=== PATIENT | male | born 1995 | race Caucasian/White ===

== ENCOUNTER 2016-05-24 03:46 | Emergency (ER) | payer OTHER ==
[~2016-05-24] VITALS: Ht 177.8 cm; Wt 81.6 kg
[~2016-05-24 03:46] MED LIST: ANTIBIOTIC O500 U/GM TP; AUGMENTIN 875875 MG PO; CYCLOBENZAPRINE10 MG PO; DOXYCYCLINE100 M3 PO; LEXAPRO10 MG PO; NAPROSYN500 MG PO; ULTRAM50 MG PO; ZOFRAN ODT4 MG SL
[2016-05-24 04:13] LABS: HEMATOCRIT 38.4 % (42.0-52.0); HEMOGLOBIN 13.7 g/dl (14.0-18.0); MEAN CELL VOLUME 86.3 fl (80.0-94.0); MEAN CORPUSCULAR HGB 30.8 pg (27.0-31.0); MEAN CORPUSCULAR HGB CONC 35.7 g/dl (33.0-37.0); MEAN PLATELET VOLUME 8.4 fl (9.6-12.3); PLATELET COUNT AUTOMATED 423 10*3/uL (130-400); RED BLOOD COUNT 4.45 10*6/uL (4.50-5.90); RED CELL DISTRI WIDTH 12.4 % (0-14.5); WHITE BLOOD COUNT 20.6 10*3/uL (4.8-10.8)
[2016-05-24 04:29] LABS: ALBUMIN 4.3 gm/dl (3.1-4.5); ALKALINE PHOSPHATASE 73 U/L (45-117); BILIRUBIN, TOTAL 0.3 mg/dl (0.2-1.0); BUN 10 mg/dl (7-24); CARBON DIOXIDE 25 mmol/L (21-32); CHLORIDE 104 mmol/L (98-107); CKMB 0.8 ng/ml (0.5-3.6); CPK 129 U/L (39-308); EST GLOM FILT AFRICAN AMERICAN > 60 ml/min; GLUCOSE 173 mg/dL (65-99); POTASSIUM 3.6 mmol/L (3.5-5.1); SGOT/AST 22 IU/L (3-35); SGPT/ALT 23 U/L (12-78); SODIUM 141 mmol/L (136-145); TOTAL PROTEIN 7.6 gm/dL (6.4-8.2)
[2016-05-24 04:31] LABS: EOSINOPHIL # 0.8 10*3/uL (0-0.4); EOSINOPHILS 4 % (1-4); LYMPHOCYTE # 5.2 10*3/uL (1.3-4.4); NEUTROPHIL # 13.6 10*3/uL (2.3-7.9); NEUTROPHILS 66 % (47-73); PLATELET SUFFICIENCY NORMAL (NORMAL); TOTAL CELLS COUNTED 100 #CELLS
[2016-05-24 04:32] LABS: TROPONIN I < 0.015 ng/ml (<0.045)
[2016-05-24] MEDS ORDERED: MEDROL DOSEPAK4 MG PO (05:15)
[2016-05-24] MEDS ORDERED: ZYRTEC10 M3 PO (05:15)
== END 2016-05-24 05:57 | disposition home or self-care (01) ==
LOC: ED 03:46
PROVIDERS: Emergency Medicine
DX: T78.40XA Allergy, unspecified, initial encounter (principal); F19.10 Other psychoactive substance abuse, uncomplicated; F17.200 Nicotine dependence, unspecified, uncomplicated; F12.10 Cannabis abuse, uncomplicated; F41.9 Anxiety disorder, unspecified

== ENCOUNTER 2016-08-10 14:17 | Emergency (ER) | payer OTHER ==
[~2016-08-10] VITALS: Ht 177.8 cm; Wt 79.4 kg
[~2016-08-10 14:17] MED LIST changes: +MEDROL DOSEPAK4 MG PO; +ZYRTEC10 M3 PO
== END 2016-08-10 14:55 | disposition home or self-care (01) ==
LOC: ED 14:17
DX: Z20.2 Contact with and (suspected) exposure to infections with a predominantly sexual mode of transmission (principal); F17.200 Nicotine dependence, unspecified, uncomplicated

== ENCOUNTER 2016-11-05 23:38 | Emergency (ER) | payer OTHER ==
[~2016-11-05] VITALS: Ht 177.8 cm; Wt 83.9 kg
--- NOTE | ~2016-11-05 | EKG ---
[place], [place] ELECTROCARDIOGRAM REPORT NAME: ANNE MACIAS UNIT #: [id number] ROOM: DOCTOR: PADMINI DONG BIRTHDATE: [birth year] DOS: 11/05/2016 TIME: 2355 hours. Normal sinus rhythm at 92 beats per minute. Early repolarization changes present. The tracing is normal. No previous tracing is available for comparison. Padmini Dong NP CM:EKGRPT:ELECTROCARDIOGRAM REPORT [id number] PADMINI DONG
[2016-11-05 23:55] LABS: BASO # 0.1 10*3/uL (0.0-0.1); BASO % 0.6 % (0.0-1.0); EOS # 0.1 10*3/uL (0.0-0.4); EOS % 0.6 % (1.0-4.0); HEMATOCRIT 41.4 % (42.0-52.0); HEMOGLOBIN 14.4 g/dl (14.0-18.0); LYMPH # 2.8 10*3/uL (1.3-4.4); LYMPH % 19.3 % (27.0-41.0); MEAN CELL VOLUME 88.1 fl (80.0-94.0); MEAN CORPUSCULAR HGB 30.6 pg (27.0-31.0); MEAN CORPUSCULAR HGB CONC 34.8 g/dl (33.0-37.0); MEAN PLATELET VOLUME 8.7 fl (9.6-12.3); MONO # 0.7 10*3/uL (0.1-1.0); NEUT # 10.7 10*3/uL (2.3-7.9); NEUT % 74.2 % (47.0-73.0); PLATELET COUNT AUTOMATED 339 10*3/uL (130-400); RED CELL DISTRI WIDTH 12.6 % (0-14.5); WHITE BLOOD COUNT 14.4 10*3/uL (4.8-10.8)
[2016-11-06 00:14] LABS: ALBUMIN 4.2 gm/dl (3.1-4.5); ALKALINE PHOSPHATASE 76 U/L (45-117); BUN 13 mg/dl (7-24); CHLORIDE 103 mmol/L (98-107); CREATININE 1.27 mg/dL (0.70-1.30); POTASSIUM 3.6 mmol/L (3.5-5.1); SGOT/AST 18 IU/L (3-35); SGPT/ALT 18 U/L (12-78); SODIUM 139 mmol/L (136-145); TOTAL PROTEIN 7.6 gm/dL (6.4-8.2)
[2016-11-06 00:21] LABS: ETHYL ALCOHOL < 3.0 mg/dl (<3); TROPONIN I < 0.015 ng/ml (<0.045)
[2016-11-06 00:22] LABS: ACETAMINOPHEN (TYLENOL) < 2.0 ug/ml (10-30)
[2016-11-06 00:45] LABS: BILIRUBIN NEGATIVE (NEGATIVE); BLOOD NEGATIVE (NEGATIVE); CLARITY CLEAR (CLEAR); COLOR YELLOW (YELLOW); GLUCOSE NEGATIVE (NEGATIVE); KETONE NEGATIVE (NEGATIVE); LEUKO ESTERASE NEGATIVE (NEGATIVE); NITRITE NEGATIVE (NEGATIVE); SPECIFIC GRAVITY >= 1.030 (1.005-1.030); UROBILINOGEN 0.2 E.U./dl (0.2-1.0)
[2016-11-06 00:51] LABS: MUCOUS TRACE; WBC 0-2 wbc/hpf (0-5)
[2016-11-06 00:56] LABS: URINE AMPHETAMINES < 1000 (1000ng/ml); URINE BARBITURATES < 200 (200ng/ml); URINE BENZODIAZEPINES > 200 (200ng/ml); URINE CANNABINOIDS (THC) < 50 (50ng/ml); URINE COCAINE < 300 (300ng/ml); URINE METHADONE < 300 (300ng/ml); URINE OPIATES < 300 (300ng/ml); URINE PHENCYCLIDINE < 25 (25ng/ml)
== END 2016-11-06 02:40 | disposition home or self-care (01) ==
LOC: ED 23:38
PROVIDERS: Emergency Medicine Emergency Medical Services
DX: T50.991A Poisoning by other drugs, medicaments and biological substances, accidental (unintentional), initial encounter (principal); F41.9 Anxiety disorder, unspecified; F12.10 Cannabis abuse, uncomplicated; F17.200 Nicotine dependence, unspecified, uncomplicated; Y92.9 Unspecified place or not applicable

== ENCOUNTER 2016-11-11 08:46 | Inpatient (IN) | payer OTHER ==
[~2016-11-11] VITALS: Ht 177.8 cm; Wt 81.4 kg
[2016-11-11 09:50] VITALS: BP 116/81
--- NOTE | 2016-11-11 10:00 | NUR ---
21 year old MALE admitted to room # 415-2 for stabilization. 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 Compliant with admission procedure. Patient denies any anxiety, but is unable to sit still, taps toes to floor continuously, looks about room, unable to focus eyes on nurse during interview. See assessment forms for additional information about patient status.
[2016-11-11 10:28] LABS: BASO # 0.1 10*3/uL (0.0-0.1); BASO % 0.6 % (0.0-1.0); EOS # 0.6 10*3/uL (0.0-0.4); EOS % 5.1 % (1.0-4.0); HEMATOCRIT 42.4 % (42.0-52.0); LYMPH # 1.5 10*3/uL (1.3-4.4); LYMPH % 14.1 % (27.0-41.0); MEAN CELL VOLUME 86.9 fl (80.0-94.0); MEAN CORPUSCULAR HGB 30.7 pg (27.0-31.0); MEAN CORPUSCULAR HGB CONC 35.4 g/dl (33.0-37.0); MEAN PLATELET VOLUME 8.2 fl (9.6-12.3); MONO # 0.7 10*3/uL (0.1-1.0); MONO % 6.8 % (3.0-9.0); PLATELET COUNT AUTOMATED 343 10*3/uL (130-400); RED BLOOD COUNT 4.88 10*6/uL (4.50-5.90); RED CELL DISTRI WIDTH 12.4 % (0-14.5); WHITE BLOOD COUNT 10.9 10*3/uL (4.8-10.8)
[2016-11-11 10:47] LABS: ALBUMIN 3.9 gm/dl (3.1-4.5); ALKALINE PHOSPHATASE 77 U/L (45-117); BUN 9 mg/dl (7-24); CHLORIDE 102 mmol/L (98-107); CREATININE 0.99 mg/dL (0.70-1.30); POTASSIUM 4.1 mmol/L (3.5-5.1); SGOT/AST 18 IU/L (3-35); SGPT/ALT 20 U/L (12-78); SODIUM 136 mmol/L (136-145); TOTAL PROTEIN 8.2 gm/dL (6.4-8.2)
[2016-11-11 10:50] LABS: ETHYL ALCOHOL < 3.0 mg/dl (<3)
--- NOTE | 2016-11-11 11:17 | NUR ---
ROBAXIN GIVEN FOR MUSCLE CRAMPS, BENTYL GIVEN FOR ABD CRAMPS AND VISTARIL GIVEN FOR ANXIETY. WILL CONT TO MONITOR. CALL LIGHT IN REACH.
[2016-11-11 11:26] LABS: BILIRUBIN NEGATIVE (NEGATIVE); BLOOD NEGATIVE (NEGATIVE); CLARITY SL CLOUDY (CLEAR); COLOR YELLOW (YELLOW); GLUCOSE NEGATIVE (NEGATIVE); KETONE NEGATIVE (NEGATIVE); LEUKO ESTERASE NEGATIVE (NEGATIVE); NITRITE NEGATIVE (NEGATIVE); SPECIFIC GRAVITY 1.015 (1.005-1.030)
[2016-11-11 11:32] LABS: BACTERIA TRACE; MUCOUS 1+
[2016-11-11 11:34] LABS: URINE AMPHETAMINES < 1000 (1000ng/ml); URINE BARBITURATES < 200 (200ng/ml); URINE BENZODIAZEPINES > 200 (200ng/ml); URINE CANNABINOIDS (THC) < 50 (50ng/ml); URINE COCAINE < 300 (300ng/ml); URINE METHADONE < 300 (300ng/ml); URINE OPIATES > 300 (300ng/ml)
[2016-11-11 11:41] LABS: URINE PHENCYCLIDINE < 25 (25ng/ml)
[2016-11-11 12:00] VITALS: BP 129/86
--- NOTE | 2016-11-11 12:17 | NUR ---
ANANDAXIN, VISTARIL AND BENTYL EFF AT THIS TIME. WILL CONT TO MONITOR. CALL LIGHT IN REACH.
[2016-11-11 16:00] VITALS: BP 126/79
[2016-11-12] VITALS: BP 140/84
--- NOTE | 2016-11-12 01:17 | NUR ---
24 HR chart check completed.
--- NOTE | 2016-11-12 02:29 | NUR ---
PATIENT REQUESTED MEDICATION TO SLEEP AT 0200, STATED THAT HE COULD NOT GO TO SLEEP, GIVEN PER ORDER. VERY PLEASANT AND TALKATIVE.
--- NOTE | 2016-11-12 02:45 | NUR ---
PATIENT SLEEPING IN BED, NO PROBLEMS NOTED.
[2016-11-12 08:00] VITALS: BP 108/64
--- NOTE | 2016-11-12 09:25 | NUR ---
PT SLEEPING IN BED, AWAKENS. PT DROWSY. C/O NAUSEA, MEDICATED WITH ZOFRAN. ALSO C/O MUSCLE ACHES, MEDICATED WITH ROUTINE SUBUTEX, SEE EMAR. CALL LIGHT IN REACH.
--- NOTE | 2016-11-12 10:15 | NUR ---
Patient resting. Responding to scheduled medications with fewer complaints of pain and anxiety. CALL LIGHT IN REACH.
[2016-11-12 16:00] VITALS: BP 112/93
--- NOTE | 2016-11-12 17:32 | NUR ---
Patient displaying withdrawal symptoms, including: irritability, anxiousness, restlessness and agitation, muscle aches, sweats. Scheduled/PRN medications provided. Will continue to monitor medication effectiveness. Call light within reach.
--- NOTE | 2016-11-12 18:51 | NUR ---
PT STATES SOME RELIEF OF SYMPTOMS. MEDICATIONS GIVEN EFFECTIVE.
--- NOTE | 2016-11-12 20:00 | NUR ---
ASSUMED CARE OF PATIENT. ASSESSMENT COMPLETE. RESTING IN BED. NO COMPLAINTS AT THIS TIME. PRN MEDICATIONS REVIEWED. CALL LIGHT IN REACH. WILL CONTINUE TO MONITOR.
[2016-11-13] VITALS: BP 108/81
--- NOTE | 2016-11-13 02:29 | NUR ---
PT WAS GIVEN PRN TYLENOL, TRAZODONE, AND DESYRIL. WILL CONTINUE TO MONITOR.
--- NOTE | 2016-11-13 02:30 | NUR ---
SLEEPING. RESP EASY AND NONLABORED ON ROOM AIR. NO DISTRESS NOTED. CALL LIGHT IN REACH. WILL CONTINUE TO MONITOR.
[2016-11-13 08:00] VITALS: BP 110/80
[2016-11-13 12:03] LABS: BASO # 0.1 10*3/uL (0.0-0.1); BASO % 0.4 % (0.0-1.0); EOS # 0.3 10*3/uL (0.0-0.4); EOS % 1.6 % (1.0-4.0); HEMATOCRIT 40.4 % (42.0-52.0); HEMOGLOBIN 14.2 g/dl (14.0-18.0); LYMPH # 1.9 10*3/uL (1.3-4.4); LYMPH % 9.5 % (27.0-41.0); MEAN CELL VOLUME 89.8 fl (80.0-94.0); MEAN CORPUSCULAR HGB 31.6 pg (27.0-31.0); MEAN CORPUSCULAR HGB CONC 35.1 g/dl (33.0-37.0); MEAN PLATELET VOLUME 8.6 fl (9.6-12.3); MONO # 1.3 10*3/uL (0.1-1.0); MONO % 6.7 % (3.0-9.0); NEUT # 16.2 10*3/uL (2.3-7.9); NEUT % 81.4 % (47.0-73.0); PLATELET COUNT AUTOMATED 322 10*3/uL (130-400); RED CELL DISTRI WIDTH 12.3 % (0-14.5); WHITE BLOOD COUNT 19.8 10*3/uL (4.8-10.8)
[2016-11-13 12:13] LABS: BUN 17 mg/dl (7-24); CHLORIDE 100 mmol/L (98-107); CREATININE 1.06 mg/dL (0.70-1.30); SODIUM 135 mmol/L (136-145)
--- NOTE | 2016-11-13 15:45 | NUR ---
D/C PLAN: PATIENT IS GOING TO [facility] FOR HIS AFTERCARE PLAN. PATIENT WAS ALSO PUT ON A WAITING LIST FOR SECOND CHANCES. PATIENT WANTS TO GO TO A METHADONE PROVIDER. PATIENT UNDERSTANDS AND AGREES TO PLAN. HODA HINES B.A. HEAD CHARGER
[2016-11-13 16:00] VITALS: BP 141/89
--- NOTE | 2016-11-13 16:20 | NUR ---
PATIENT MEDICATED WITH VISTARIL UPON COMPLAINTS OF ANXIETY AT THIS TIME. WILL MONITOR.
--- NOTE | 2016-11-13 16:20 | NUR ---
PATIENT MEDICATED WITH VISTARIL FOR AGITATION. WILL MONITOR FOR EFFECTIVENESS.
--- NOTE | 2016-11-13 17:20 | NUR ---
PRN MEDICATION EFFECTIVE AT THIS TIME.
--- NOTE | 2016-11-13 17:56 | NUR ---
PATIENT STATES THAT VISTARIL WAS EFFECTIVE. PT VERY DROWSY AT THIS TIME.
--- NOTE | 2016-11-13 20:00 | NUR ---
PATIENT IS AWAKE, ALERT AND ORIENTED X3. PLEASANT AND COOPERATIVE WITH ASSESSMENT. LUNGS ARE CLEAR AND DIMINISHED THROUGHOUT LUNGFIELDS. ROOM AIR. ABDOMEN IS SOFT AND NON-TENDER UPON PALPTION, BOWEL SOUNDS ARE NROMAOCTIVE X 4 QUADS. PATIENT INSISTED THAT THE IV FROM HIS LEFT AC BE REMOVED. IV REMOVED AT THIS TIME. PATIENT STATES THAT HE CARRILLO SNOT WANT ANY MORE FLUIDS AND IS REFUSING TO HAVE ANY MORE. PATIENT DNEIES ANY NEEDS AT THE PRESENT TIME. CALL LIGHT IS IN REACH.
--- NOTE | 2016-11-13 20:30 | NUR ---
PATIENT REQUESTED SOMETHING FOR C/O ACHY RESTLESS LEGS. PRN REQUIP AND ROBAXIN GIVEN AT THIS TIME. CALL LIGHT IS IN REACH.
--- NOTE | 2016-11-13 21:30 | NUR ---
PATIENT STATES THAT THE REQUIP AND ROBAXIN HAVE HELPED AT THIS TIME. DNEIES ANY FURTHER NEEDS. CALL LIGHT IS IN REACH.
--- NOTE | 2016-11-13 22:47 | NUR ---
PATIENT REQUESTED SOMETHING FOR ANXIETY AND SOMETHING TO HELP HIM SLEEP . PRN VISTRAIL AND TRAZADONE GIVEN AT THIS TIME. CALL LIGHT IS IN REACH.
--- NOTE | 2016-11-13 23:58 | NUR ---
PATIENT INFOMRED THAT HIS VISITOR HAD TO LEAVE AT THIS TIME. PATIENT GOT UPSET AND STATED THAT THEY HAD TRIED TO CALL A CAB AND THE PHONE WASN'T WORKING. THE [employer] COMPANY NUMBER WAS CALLED FOR HIS FIANCE AT THIS TIME. PATIENT ALSO INFORMED THE THRESHING OPERATOR THAT SHE COULD NOT COME IN HIS ROOM BECAUSE HE SLEEPS NAKED. THRESHING OPERATOR INFOMRED PATIENT THAT BOTH HERSELF AND THE NURSE WOULD BE MAKING ROUNDS ON HIM AND OBTAINING VITALS AND GIVING MEICATIONS. PATIENT SHUT THE DOOR ON THIS THRESHING OPERATOR.
[2016-11-14] VITALS: BP 143/94
--- NOTE | 2016-11-14 01:05 | NUR ---
PATIENT REQUESTED SOMETHING FOR INSOMINA. PRN TRAZADONE. GIVEN AT [facility] HIS SECOND DOSE. CALL LIGHT IS IN REACH.
--- NOTE | 2016-11-14 05:55 | NUR ---
PATIENT RESTING IN BED WITH EYES CLOSED BILATERALLY. RESPIRAITONS ARE EASY AND REGULAR. NO S/S OF PAIN OR DISCOMFORT. CALL LIGHT IS IN REACH.
[2016-11-14 07:06] LABS: HEPATITIS B SURFACE AG Negative (Negative); HEPATITIS C VIRUS ANTIBODY <0.1 s/co (0.0-0.9); HIV 1+2 AB + HIV1 P24 AG Non Reactive (Non Reactive)
[2016-11-14 07:18] LABS: BASO # 0.1 10*3/uL (0.0-0.1); BASO % 0.8 % (0.0-1.0); EOS # 0.5 10*3/uL (0.0-0.4); HEMATOCRIT 35.6 % (42.0-52.0); HEMOGLOBIN 12.3 g/dl (14.0-18.0); LYMPH # 2.3 10*3/uL (1.3-4.4); LYMPH % 29.3 % (27.0-41.0); MEAN CELL VOLUME 90.6 fl (80.0-94.0); MEAN CORPUSCULAR HGB 31.3 pg (27.0-31.0); MEAN CORPUSCULAR HGB CONC 34.6 g/dl (33.0-37.0); MEAN PLATELET VOLUME 8.5 fl (9.6-12.3); MONO # 0.8 10*3/uL (0.1-1.0); MONO % 9.4 % (3.0-9.0); NEUT # 4.3 10*3/uL (2.3-7.9); NEUT % 54.2 % (47.0-73.0); PLATELET COUNT AUTOMATED 288 10*3/uL (130-400); RED BLOOD COUNT 3.93 10*6/uL (4.50-5.90); RED CELL DISTRI WIDTH 12.2 % (0-14.5)
--- NOTE | 2016-11-14 11:15 | NUR ---
Discharge instructions reviewed with patient/family. Patient receptive and verbalizes understanding. Follow-up care arranged. Written instructions given to patient/family. PATIENT PICKED UP BY GRANDMOTHER. AMBULATORY OFF FLOOR. LORELEI ALONZO
[2016-11-17 04:04] LABS: GONOCOCCUS BY NAA Negative (Negative)
== END 2016-11-14 11:15 | disposition home or self-care (01) | DRG 897 ==
LOC: 4E 08:46
PROVIDERS: Internal Medicine; ADMIT Internal Medicine
DX: F11.23 Opioid dependence with withdrawal (principal); R65.10 Systemic inflammatory response syndrome (SIRS) of non-infectious origin without acute organ dysfunction; E87.1 Hypo-osmolality and hyponatremia; T50.901A Poisoning by unspecified drugs, medicaments and biological substances, accidental (unintentional), initial encounter; M79.1 Myalgia; F17.200 Nicotine dependence, unspecified, uncomplicated; R73.9 Hyperglycemia, unspecified; F13.239 Sedative, hypnotic or anxiolytic dependence with withdrawal, unspecified; F41.9 Anxiety disorder, unspecified; F10.10 Alcohol abuse, uncomplicated; F14.10 Cocaine abuse, uncomplicated; Z71.6 Tobacco abuse counseling

== ENCOUNTER 2017-01-09 20:20 | Emergency (ER) | payer OTHER ==
[~2017-01-09] VITALS: Ht 177.8 cm; Wt 81.6 kg
[2017-01-09] MEDS ORDERED: KETOROLAC10 MG PO (21:08)
== END 2017-01-09 22:47 | disposition home or self-care (01) ==
LOC: ED 20:20
DX: K08.89 Other specified disorders of teeth and supporting structures (principal); R73.9 Hyperglycemia, unspecified; E87.1 Hypo-osmolality and hyponatremia; F10.10 Alcohol abuse, uncomplicated; F41.9 Anxiety disorder, unspecified; F17.200 Nicotine dependence, unspecified, uncomplicated

== ENCOUNTER 2017-08-12 06:10 | Emergency (ER) | payer OTHER ==
[~2017-08-12] VITALS: Ht 177.8 cm; Wt 83.9 kg
[~2017-08-12 06:10] MED LIST changes: +KETOROLAC10 MG PO
== END 2017-08-12 08:18 | disposition left against medical advice (07) ==
LOC: ED 06:10
DX: R55 Syncope and collapse (principal); F17.200 Nicotine dependence, unspecified, uncomplicated; F12.10 Cannabis abuse, uncomplicated; F14.10 Cocaine abuse, uncomplicated; R42 Dizziness and giddiness

== ENCOUNTER 2017-11-03 12:23 | Emergency (ER) | payer OTHER ==
[~2017-11-03] VITALS: Ht 177.8 cm; Wt 79.4 kg
--- NOTE | ~2017-11-03 | EKG ---
[place], [place] ELECTROCARDIOGRAM REPORT NAME: ANNE MACIAS UNIT #: [id number] ROOM: DOCTOR: EPIPHANY DRAFT REPORT BIRTHDATE: [birth year] [facility] Test Date: 2017-11-03 Test Time: 13:02:06 Pat Name: ANNE MACIAS Department: Room: Gender: Borematic Operator: : 1995 Requested By: PORTER SAMAYOA DNP Order Number: [id number] Reading MD: Mitali Plata MD Measurements Intervals [place] Rate: 100 P: 57 DC: 135 QRS: 57 QRSD: 84 T: 57 QT: 359 QTc: 463 Interpretive Statements Sinus tachycardia Electronically Signed On 11-04-2017 13:41:28 PDT by Mitali Plata MD CM:EKGRPT:ELECTROCARDIOGRAM REPORT [id number] PORTER SAMAYOA DNP EPIPHANY DRAFT REPORT PORTER SAMAYOA DNP
[2017-11-03 13:07] LABS: BASO % 0.3 % (0.0-1.0); EOS # 0.1 10*3/uL (0.0-0.4); EOS % 0.7 % (1.0-4.0); HEMATOCRIT 36.2 % (42.0-52.0); HEMOGLOBIN 12.9 g/dl (14.0-18.0); LYMPH # 2.4 10*3/uL (1.3-4.4); LYMPH % 19.1 % (27.0-41.0); MEAN CELL VOLUME 88.1 fl (80.0-94.0); MEAN CORPUSCULAR HGB 31.4 pg (27.0-31.0); MEAN CORPUSCULAR HGB CONC 35.6 g/dl (33.0-37.0); MEAN PLATELET VOLUME 8.4 fl (9.6-12.3); MONO # 0.8 10*3/uL (0.1-1.0); MONO % 6.3 % (3.0-9.0); NEUT # 9.4 10*3/uL (2.3-7.9); NEUT % 73.3 % (47.0-73.0); PLATELET COUNT AUTOMATED 298 10*3/uL (130-400); RED BLOOD COUNT 4.11 10*6/uL (4.50-5.90); RED CELL DISTRI WIDTH 12.8 % (0-14.5); WHITE BLOOD COUNT 12.8 10*3/uL (4.8-10.8)
[2017-11-03 13:17] LABS: ACT PARTIAL THROMBO TIME 20.8 SECONDS (20.8-31.5)
[2017-11-03 13:19] LABS: ETHYL ALCOHOL < 3.0 mg/dl (<3)
[2017-11-03 13:20] LABS: ACETAMINOPHEN (TYLENOL) < 2.0 ug/ml (10-30)
[2017-11-03 13:23] LABS: ALBUMIN 3.9 gm/dl (3.1-4.5); ALKALINE PHOSPHATASE 65 U/L (45-117); BUN 15 mg/dl (7-24); CHLORIDE 103 mmol/L (98-107); CREATININE 1.05 mg/dL (0.70-1.30); POTASSIUM 3.6 mmol/L (3.5-5.1); SGOT/AST 13 IU/L (3-35); SGPT/ALT 20 U/L (12-78); SODIUM 138 mmol/L (136-145); TOTAL PROTEIN 7.6 gm/dL (6.4-8.2)
[2017-11-03 13:24] LABS: TROPONIN I < 0.015 ng/ml (<0.045)
[2017-11-03 13:43] LABS: BILIRUBIN NEGATIVE (NEGATIVE); BLOOD NEGATIVE (NEGATIVE); CLARITY SL CLOUDY (CLEAR); COLOR YELLOW (YELLOW); GLUCOSE NEGATIVE (NEGATIVE); KETONE NEGATIVE (NEGATIVE); LEUKO ESTERASE NEGATIVE (NEGATIVE); NITRITE NEGATIVE (NEGATIVE); SPECIFIC GRAVITY 1.025 (1.005-1.030); UROBILINOGEN 0.2 E.U./dl (0.2-1.0)
[2017-11-03 13:51] LABS: URINE AMPHETAMINES > 1000 (1000ng/ml); URINE BARBITURATES < 200 (200ng/ml); URINE BENZODIAZEPINES < 200 (200ng/ml); URINE CANNABINOIDS (THC) < 50 (50ng/ml); URINE COCAINE < 300 (300ng/ml); URINE METHADONE < 300 (300ng/ml); URINE OPIATES > 300 (300ng/ml); URINE PHENCYCLIDINE < 25 (25ng/ml)
[2017-11-03 13:57] LABS: MUCOUS 1+; RBC 0-2 rbc/hpf (0-2)
== END 2017-11-03 15:45 | disposition home or self-care (01) ==
LOC: ED 12:23
PROVIDERS: Nurse Practitioner Family
DX: T50.901A Poisoning by unspecified drugs, medicaments and biological substances, accidental (unintentional), initial encounter (principal); R40.20 Unspecified coma; Z87.891 Personal history of nicotine dependence; Y92.091 Bathroom in other non-institutional residence as the place of occurrence of the external cause

== ENCOUNTER 2019-03-12 20:00 | Emergency (ER) | payer OTHER ==
[~2019-03-12] VITALS: Ht 177.8 cm; Wt 77.1 kg
[2019-03-12 20:54] LABS: BILIRUBIN NEGATIVE (NEGATIVE); BLOOD NEGATIVE (NEGATIVE); CLARITY CLEAR (CLEAR); COLOR YELLOW (YELLOW); GLUCOSE NEGATIVE (NEGATIVE); KETONE NEGATIVE (NEGATIVE); LEUKO ESTERASE NEGATIVE (NEGATIVE); NITRITE NEGATIVE (NEGATIVE); SPECIFIC GRAVITY >= 1.030 (1.005-1.030); UROBILINOGEN 0.2 E.U./dl (0.2-1.0)
[2019-03-12 21:01] LABS: BACTERIA 1+; MUCOUS 3+
[2019-03-12 21:02] LABS: URINE AMPHETAMINES > 1000 (1000ng/ml); URINE BARBITURATES < 200 (200ng/ml); URINE BENZODIAZEPINES > 200 (200ng/ml); URINE CANNABINOIDS (THC) < 50 (50ng/ml); URINE COCAINE > 300 (300ng/ml); URINE METHADONE < 300 (300ng/ml); URINE OPIATES < 300 (300ng/ml)
[2019-03-12 21:06] LABS: BASO # 0.1 10*3/uL (0.0-0.1); BASO % 0.8 % (0.0-1.0); EOS # 0.2 10*3/uL (0.0-0.4); HEMATOCRIT 37.9 % (42.0-52.0); HEMOGLOBIN 13.3 g/dl (14.0-18.0); LYMPH # 3.4 10*3/uL (1.3-4.4); LYMPH % 33.5 % (27.0-41.0); MEAN CELL VOLUME 87.1 fl (80.0-94.0); MEAN CORPUSCULAR HGB 30.6 pg (27.0-31.0); MEAN CORPUSCULAR HGB CONC 35.1 g/dl (33.0-37.0); MEAN PLATELET VOLUME 8.3 fl (9.6-12.3); MONO # 1.3 10*3/uL (0.1-1.0); MONO % 12.7 % (3.0-9.0); NEUT # 5.1 10*3/uL (2.3-7.9); NEUT % 50.7 % (47.0-73.0); PLATELET COUNT AUTOMATED 395 10*3/uL (130-400); RED BLOOD COUNT 4.35 10*6/uL (4.50-5.90); RED CELL DISTRI WIDTH 12.6 % (0-14.5)
[2019-03-12 21:10] LABS: URINE PHENCYCLIDINE < 25 (25ng/ml)
[2019-03-12 21:21] LABS: ALBUMIN 4.2 gm/dl (3.1-4.5); ALKALINE PHOSPHATASE 85 U/L (45-117); BUN 17 mg/dl (7-24); CHLORIDE 109 mmol/L (98-107); CREATININE 1.13 mg/dL (0.70-1.30); LIPASE 58 U/L (73-393); SGOT/AST 28 IU/L (3-35); SGPT/ALT 32 U/L (12-78); SODIUM 141 mmol/L (136-145); TOTAL PROTEIN 7.9 gm/dL (6.4-8.2)
[2019-03-13] MEDS ORDERED: 'CLONIDINE0.1 MG PO (00:24)
== END 2019-03-13 01:15 | disposition home or self-care (01) ==
LOC: ED 20:00
PROVIDERS: Emergency Medicine Emergency Medical Services; Nurse Practitioner Family
DX: K42.9 Umbilical hernia without obstruction or gangrene (principal); F11.10 Opioid abuse, uncomplicated; R19.7 Diarrhea, unspecified; F17.200 Nicotine dependence, unspecified, uncomplicated

== ENCOUNTER 2019-03-14 16:47 | Emergency (ER) | payer OTHER ==
[~2019-03-14] VITALS: Ht 177.8 cm; Wt 79.4 kg
[~2019-03-14 16:47] MED LIST changes: +'CLONIDINE0.1 MG PO
[2019-03-14 17:46] LABS: HEMOGLOBIN 11.6 g/dl (14.0-18.0); MEAN CELL VOLUME 88.3 fl (80.0-94.0); MEAN CORPUSCULAR HGB 30.1 pg (27.0-31.0); MEAN CORPUSCULAR HGB CONC 34.1 g/dl (33.0-37.0); MEAN PLATELET VOLUME 8.3 fl (9.6-12.3); PLATELET COUNT AUTOMATED 308 10*3/uL (130-400); RED BLOOD COUNT 3.85 10*6/uL (4.50-5.90); RED CELL DISTRI WIDTH 12.7 % (0-14.5)
[2019-03-14 18:02] LABS: ALBUMIN 4.1 gm/dl (3.1-4.5); ALKALINE PHOSPHATASE 75 U/L (45-117); BUN 19 mg/dl (7-24); CHLORIDE 109 mmol/L (98-107); CREATININE 1.26 mg/dL (0.70-1.30); ETHYL ALCOHOL < 3.0 mg/dl (<3); POTASSIUM 3.3 mmol/L (3.5-5.1); SGOT/AST 45 IU/L (3-35); SGPT/ALT 33 U/L (12-78); SODIUM 142 mmol/L (136-145); TOTAL PROTEIN 7.4 gm/dL (6.4-8.2)
[2019-03-14 18:03] LABS: TROPONIN I < 0.015 ng/ml (<0.045)
[2019-03-14 18:05] LABS: BASOPHILS 2 % (0-1); TOTAL CELLS COUNTED 100 #CELLS
[2019-03-14 18:06] LABS: PLATELET SUFFICIENCY NORMAL (NORMAL)
== END 2019-03-15 08:58 | disposition home or self-care (01) ==
LOC: ED 16:47
PROVIDERS: Emergency Medicine
DX: F19.10 Other psychoactive substance abuse, uncomplicated (principal); R07.89 Other chest pain; R55 Syncope and collapse; R45.1 Restlessness and agitation; F41.9 Anxiety disorder, unspecified; F14.90 Cocaine use, unspecified, uncomplicated; F12.90 Cannabis use, unspecified, uncomplicated; F11.90 Opioid use, unspecified, uncomplicated; Z87.891 Personal history of nicotine dependence

== ENCOUNTER → 2019-04-01 | Day surgery (SDC) | payer OTHER ==
[~2019-04-01] VITALS: Ht 180.3 cm; Wt 86.2 kg
[~2019-04-01] MED LIST changes: +NORCO 5-325 TA1 EACH PO
[2019-04-01 08:10] VITALS: BP 128/87
[2019-04-01 08:15] LABS: BASO # 0.1 10*3/uL (0.0-0.1); BASO % 0.5 % (0.0-1.0); EOS # 0.1 10*3/uL (0.0-0.4); EOS % 1.2 % (1.0-4.0); HEMATOCRIT 44.7 % (42.0-52.0); HEMOGLOBIN 14.9 g/dl (14.0-18.0); LYMPH # 2.8 10*3/uL (1.3-4.4); LYMPH % 24.1 % (27.0-41.0); MEAN CELL VOLUME 91.4 fl (80.0-94.0); MEAN CORPUSCULAR HGB 30.5 pg (27.0-31.0); MEAN CORPUSCULAR HGB CONC 33.3 g/dl (33.0-37.0); MEAN PLATELET VOLUME 8.8 fl (9.6-12.3); MONO # 0.6 10*3/uL (0.1-1.0); MONO % 5.3 % (3.0-9.0); NEUT % 68.6 % (47.0-73.0); PLATELET COUNT AUTOMATED 424 10*3/uL (130-400); RED BLOOD COUNT 4.89 10*6/uL (4.50-5.90); RED CELL DISTRI WIDTH 13.2 % (0-14.5); WHITE BLOOD COUNT 11.6 10*3/uL (4.8-10.8)
[2019-04-01 08:25] LABS: ACT PARTIAL THROMBO TIME 25.4 SECONDS (20.0-32.1); BUN 20 mg/dl (7-24); CHLORIDE 104 mmol/L (98-107); CREATININE 1.14 mg/dL (0.70-1.30); INTERNATIONAL NORM RATIO 0.9 (2.0-3.5); POTASSIUM 4.2 mmol/L (3.5-5.1); SODIUM 137 mmol/L (136-145)
[2019-04-01 09:54] VITALS: BP 112/72
[2019-04-01 10:09] VITALS: BP 121/79
[2019-04-01 10:24] VITALS: BP 121/79
[2019-04-01 10:39] VITALS: BP 114/77
[2019-04-01 10:54] VITALS: BP 123/80
== END | disposition home or self-care (01) ==
LOC: SDC 03-28 13:15
PROVIDERS: Surgery
DX: K42.0 Umbilical hernia with obstruction, without gangrene (principal); Z87.891 Personal history of nicotine dependence

== ENCOUNTER 2019-05-04 02:15 | Emergency (ER) | payer OTHER ==
[~2019-05-04] VITALS: Ht 177.8 cm; Wt 81.6 kg
[2019-05-04 03:01] LABS: BASO # 0.1 10*3/uL (0.0-0.1); BASO % 0.4 % (0.0-1.0); EOS # 0.1 10*3/uL (0.0-0.4); EOS % 0.8 % (1.0-4.0); HEMOGLOBIN 13.3 g/dl (14.0-18.0); LYMPH # 1.1 10*3/uL (1.3-4.4); LYMPH % 9.6 % (27.0-41.0); MEAN CELL VOLUME 88.6 fl (80.0-94.0); MEAN CORPUSCULAR HGB 30.2 pg (27.0-31.0); MEAN CORPUSCULAR HGB CONC 34.1 g/dl (33.0-37.0); MEAN PLATELET VOLUME 8.3 fl (9.6-12.3); MONO # 1.2 10*3/uL (0.1-1.0); MONO % 10.4 % (3.0-9.0); NEUT # 8.7 10*3/uL (2.3-7.9); NEUT % 78.4 % (47.0-73.0); PLATELET COUNT AUTOMATED 293 10*3/uL (130-400); WHITE BLOOD COUNT 11.1 10*3/uL (4.8-10.8)
[2019-05-04 03:18] LABS: ALKALINE PHOSPHATASE 75 U/L (45-117); BUN 13 mg/dl (7-24); CHLORIDE 101 mmol/L (98-107); LIPASE 80 U/L (73-393); POTASSIUM 3.8 mmol/L (3.5-5.1); SGOT/AST 10 IU/L (3-35); SGPT/ALT 17 U/L (12-78); SODIUM 136 mmol/L (136-145); TOTAL PROTEIN 7.5 gm/dL (6.4-8.2)
[2019-05-04 03:41] LABS: URINE AMPHETAMINES < 1000 (1000ng/ml); URINE BARBITURATES < 200 (200ng/ml); URINE BENZODIAZEPINES < 200 (200ng/ml); URINE CANNABINOIDS (THC) < 50 (50ng/ml); URINE COCAINE > 300 (300ng/ml); URINE METHADONE < 300 (300ng/ml); URINE OPIATES < 300 (300ng/ml)
[2019-05-04 03:42] LABS: URINE PHENCYCLIDINE < 25 (25ng/ml)
[2019-05-04 03:45] LABS: BILIRUBIN NEGATIVE (NEGATIVE); CLARITY CLEAR (CLEAR); COLOR YELLOW (YELLOW); GLUCOSE NEGATIVE (NEGATIVE); KETONE NEGATIVE (NEGATIVE)
[2019-05-04 03:46] LABS: BLOOD TRACE-INTACT (NEGATIVE); LEUKO ESTERASE NEGATIVE (NEGATIVE); NITRITE NEGATIVE (NEGATIVE); PH 6.5 (5.0-9.0); UROBILINOGEN 0.2 E.U./dl (0.2-1.0)
[2019-05-04 03:50] LABS: RBC 0-2 rbc/hpf (0-2); WBC 0-2 wbc/hpf (0-5)
== END 2019-05-04 05:03 | disposition home or self-care (01) ==
LOC: ED 02:15
PROVIDERS: Emergency Medicine
DX: B34.9 Viral infection, unspecified (principal); F41.9 Anxiety disorder, unspecified; Z79.899 Other long term (current) drug therapy

== ENCOUNTER 2019-07-23 01:11 | Emergency (ER) | payer OTHER ==
[2019-07-23 02:04] LABS: URINE AMPHETAMINES < 1000 (1000ng/ml); URINE BARBITURATES < 200 (200ng/ml); URINE BENZODIAZEPINES > 200 (200ng/ml); URINE CANNABINOIDS (THC) > 50 (50ng/ml); URINE COCAINE < 300 (300ng/ml); URINE METHADONE < 300 (300ng/ml); URINE OPIATES > 300 (300ng/ml)
[2019-07-23 02:05] LABS: BILIRUBIN NEGATIVE (NEGATIVE); BLOOD NEGATIVE (NEGATIVE); CLARITY SL CLOUDY (CLEAR); COLOR YELLOW (YELLOW); GLUCOSE NEGATIVE (NEGATIVE); KETONE NEGATIVE (NEGATIVE); LEUKO ESTERASE NEGATIVE (NEGATIVE); NITRITE NEGATIVE (NEGATIVE); PH 6.5 (5.0-9.0); SPECIFIC GRAVITY 1.015 (1.005-1.030); UROBILINOGEN 0.2 E.U./dl (0.2-1.0)
[2019-07-23 02:06] LABS: RBC 0-2 rbc/hpf (0-2); WBC 0-2 wbc/hpf (0-5)
[2019-07-23 02:08] LABS: URINE PHENCYCLIDINE < 25 (25ng/ml)
== END 2019-07-23 05:53 | disposition home or self-care (01) ==
LOC: ED 01:11
PROVIDERS: Emergency Medicine
DX: T40.2X5A Adverse effect of other opioids, initial encounter (principal); T42.4X5A Adverse effect of benzodiazepines, initial encounter; F17.200 Nicotine dependence, unspecified, uncomplicated; Z79.899 Other long term (current) drug therapy; Y92.89 Other specified places as the place of occurrence of the external cause

== ENCOUNTER 2019-12-07 12:34 | Inpatient (IN) | payer OTHER ==
[~2019-12-07] VITALS: Ht 177.8 cm; Wt 75.9 kg
--- NOTE | 2019-12-07 13:39 | NUR ---
PATIENT MEETS [facility]. CINA=19,CIWA=21,CIWA(B)=37. [place] STAFF PROVIDED PATIENT WITH REFFERAL OPTIONS. [place] STAFF WILL FOLLOW UP WITH PATIENT CONCERNING HIS AFTERCARE PLAN. PATIENT IS INTERESTED IN MEDICATION-ASSISTED TREATMENT. 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
--- NOTE | 2019-12-07 14:00 | NUR ---
24 year old MALE admitted to room # 422 for stabilization. Reports an addiction to HEROIN,ALCOHOL, BENZODIAZEPINES last used 24 hours prior to admission. Compliant with admission procedure. Patient denies any anxiety, but is unable to sit still, taps toes to floor continuously, looks about room, unable to focus eyes on nurse during interview. See assessment forms for additional information about patient status.
[2019-12-07 14:30] VITALS: BP 136/97
[2019-12-07 15:04] LABS: BASO % 0.3 % (0.0-1.0); EOS % 0.2 % (1.0-4.0); HEMATOCRIT 39.4 % (42.0-52.0); LYMPH # 1.1 10*3/uL (1.3-4.4); LYMPH % 9.2 % (27.0-41.0); MEAN CELL VOLUME 89.7 fl (80.0-94.0); MEAN CORPUSCULAR HGB 30.3 pg (27.0-31.0); MEAN CORPUSCULAR HGB CONC 33.8 g/dl (33.0-37.0); MEAN PLATELET VOLUME 8.3 fl (9.6-12.3); MONO # 0.2 10*3/uL (0.1-1.0); MONO % 1.7 % (3.0-9.0); NEUT % 88.4 % (47.0-73.0); PLATELET COUNT AUTOMATED 328 10*3/uL (130-400); RED BLOOD COUNT 4.39 10*6/uL (4.50-5.90); RED CELL DISTRI WIDTH 13.4 % (0-14.5); WHITE BLOOD COUNT 12.5 10*3/uL (4.8-10.8)
[2019-12-07 15:28] LABS: ALBUMIN 3.9 gm/dl (3.1-4.5); ALKALINE PHOSPHATASE 70 U/L (45-117); BUN 7 mg/dl (7-24); CHLORIDE 104 mmol/L (98-107); CREATININE 0.78 mg/dL (0.70-1.30); LIPASE 69 U/L (73-393); SGOT/AST 14 IU/L (3-35); SGPT/ALT 21 U/L (12-78); SODIUM 138 mmol/L (136-145); TOTAL PROTEIN 7.5 gm/dL (6.4-8.2)
[2019-12-07 15:34] LABS: ETHYL ALCOHOL < 3.0 mg/dl (<3)
[2019-12-07 16:00] VITALS: BP 132/88
[2019-12-07 19:34] LABS: BILIRUBIN Negative (Negative); BLOOD Negative (Negative); CLARITY Clear (Clear); COLOR Yellow (Yellow); GLUCOSE Negative (Negative); KETONE Negative (Negative); LEUKO ESTERASE Negative (Negative); NITRITE Negative (Negative); SPECIFIC GRAVITY 1.015 (1.001-1.030); UROBILINOGEN 0.2 E.U./dl (0.0-1.0)
[2019-12-07 19:45] LABS: PH 8.5 (4.5-8.0)
[2019-12-07 19:52] LABS: URINE AMPHETAMINES < 1000 (1000ng/ml); URINE BARBITURATES < 200 (200ng/ml); URINE BENZODIAZEPINES < 200 (200ng/ml); URINE CANNABINOIDS (THC) < 50 (50ng/ml); URINE COCAINE < 300 (300ng/ml); URINE METHADONE < 300 (300ng/ml); URINE OPIATES > 300 (300ng/ml)
[2019-12-07 19:54] LABS: CALCIUM OXALATE CRYSTALS TR; EPITHELIAL CELLS 0-2; WBC 0-2 wbc/hpf (0-5)
[2019-12-07 19:56] LABS: URINE PHENCYCLIDINE < 25 (25ng/ml)
[2019-12-07 20:00] VITALS: BP 142/86
--- NOTE | 2019-12-07 20:50 | NUR ---
NOTIFIED DR. DELCID OF PATIENTS HR IN THE 130'S-170S. PATIENT PACING AROUND ROOM. ANXIOUS AND PARANOID. PER DR. DELCID START AN IV ON PATIENT AND HE WOULD BE UP TO HE HIM.
--- NOTE | 2019-12-07 21:03 | NUR ---
ATTEMPTED TO START IV ON PATIENT. PATIENT REFUSING AT THIS TIME. THIS NURSE EXPLAINED THE REASONING FOR STARTING AN IV. PATIENT STATED "I WILL THINK ABOUT IT" WILL RETRY
--- NOTE | 2019-12-07 21:16 | NUR ---
DR. DELCID ON FLOOR. PATIENT HR NOW 182. PATIENT AGREEABLE TO IV.
--- NOTE | 2019-12-07 21:36 | NUR ---
ATTEMPTED TO START IV ON PATIENT. IV SUCESSFUL BUT PATIENT SCREAMING AT NURSE TO TAKE IV OUT. IV REMOVED. NOTIFIED DR. DELCID. TOLD TO GIVE PRN PO ATIVAN. WILL CONTINUE TO MONITOR.
--- NOTE | 2019-12-07 22:02 | NUR ---
PATIENT HR REMAINS 150'S. PRN ATIVAN GIVEN AT THIS TIME. WILL CONTINUE TO MONITOR.
--- NOTE | 2019-12-07 23:02 | NUR ---
PATIENT HR NOW 120'S. ATIVAN HELPING.
--- NOTE | 2019-12-07 23:47 | NUR ---
PATIENT GIVEN TRAZADONE TO HELP SLEEP. WILL CHECK EFFECTIVENESS.
[2019-12-08] VITALS: BP 109/70
--- NOTE | 2019-12-08 03:10 | NUR ---
PATIENT ANXIOUS. HR IN THE 160'S. GIVEN PRN BENADRYL. WILL CHECK EFFECTIVENESS.
--- NOTE | 2019-12-08 07:54 | NUR ---
WENT TO PATIENTS ROOM FOR ASSESSMENT, PT NODDING OFF WHILE TALK SLURRING WORDS, EYES BLOOD SHOT PUPILS PINPOINT, ASKED PATIENT IF HE TOOK ANYTHING, PT MUMBLED SOMETHING INCOHERENT, SEEN A SMALL BAGGIE HANGING OUT OF PATIENTS WALLET, BAGGIE WAS EMPTY, PT DENIED DRUG USE AT THAT TIME, PT WNATED TO LEAVE AMA, PT APPEARED TO BE STUMBLING HE WAS GETTING DRESSED.
--- NOTE | 2019-12-08 07:58 | NUR ---
PT LEFT AMA ESCORTED OUT BY RUSS BELTRAN
== END 2019-12-08 07:58 | disposition left against medical advice (07) | DRG 918 ==
LOC: 4E 12:34
PROVIDERS: Internal Medicine; Podiatrist; ADMIT Internal Medicine; ATTEND Internal Medicine
DX: T42.4X1A Poisoning by benzodiazepines, accidental (unintentional), initial encounter (principal); R65.10 Systemic inflammatory response syndrome (SIRS) of non-infectious origin without acute organ dysfunction; F11.929 Opioid use, unspecified with intoxication, unspecified; D72.829 Elevated white blood cell count, unspecified; F17.210 Nicotine dependence, cigarettes, uncomplicated; F13.10 Sedative, hypnotic or anxiolytic abuse, uncomplicated; F10.129 Alcohol abuse with intoxication, unspecified; F19.10 Other psychoactive substance abuse, uncomplicated; D64.9 Anemia, unspecified; R73.9 Hyperglycemia, unspecified; Y92.89 Other specified places as the place of occurrence of the external cause; Z53.29 Procedure and treatment not carried out because of patient's decision for other reasons

== ENCOUNTER 2020-01-14 19:35 | Emergency (ER) | payer OTHER ==
[~2020-01-14] VITALS: Ht 177.8 cm; Wt 77.1 kg
== END 2020-01-14 21:26 | disposition home or self-care (01) ==
LOC: ED 19:35
DX: T40.2X1A Poisoning by other opioids, accidental (unintentional), initial encounter (principal); Y92.89 Other specified places as the place of occurrence of the external cause

== ENCOUNTER 2020-01-24 20:20 | Emergency (ER) | payer OTHER ==
[~2020-01-24] VITALS: Ht 177.8 cm; Wt 79.4 kg
== END 2020-01-24 23:44 | disposition home or self-care (01) ==
LOC: ED 20:20
DX: T40.601A Poisoning by unspecified narcotics, accidental (unintentional), initial encounter (principal); F41.9 Anxiety disorder, unspecified; R19.7 Diarrhea, unspecified; Y92.89 Other specified places as the place of occurrence of the external cause

== ENCOUNTER 2020-02-15 09:45 | Emergency (ER) | payer OTHER ==
[~2020-02-15] VITALS: Ht 177.8 cm; Wt 81.6 kg
== END 2020-02-15 11:45 | disposition home or self-care (01) ==
LOC: ED 09:45
DX: Z04.3 Encounter for examination and observation following other accident (principal); V89.2XXA Person injured in unspecified motor-vehicle accident, traffic, initial encounter; Y93.89 Activity, other specified; Y92.89 Other specified places as the place of occurrence of the external cause; Y99.8 Other external cause status

== ENCOUNTER 2020-03-08 21:32 | Emergency (ER) | payer OTHER ==
[2020-03-08 22:30] LABS: BASO # 0.1 10*3/uL (0.0-0.1); BASO % 0.3 % (0.0-1.0); EOS # 0.1 10*3/uL (0.0-0.4); EOS % 0.5 % (1.0-4.0); HEMATOCRIT 39.2 % (42.0-52.0); LYMPH # 1.8 10*3/uL (1.3-4.4); LYMPH % 8.9 % (27.0-41.0); MEAN CELL VOLUME 90.3 fl (80.0-94.0); MEAN CORPUSCULAR HGB 30.4 pg (27.0-31.0); MEAN CORPUSCULAR HGB CONC 33.7 g/dl (33.0-37.0); MEAN PLATELET VOLUME 7.9 fl (9.6-12.3); MONO # 0.7 10*3/uL (0.1-1.0); MONO % 3.6 % (3.0-9.0); NEUT % 86.1 % (47.0-73.0); PLATELET COUNT AUTOMATED 399 10*3/uL (130-400); RED BLOOD COUNT 4.34 10*6/uL (4.50-5.90); WHITE BLOOD COUNT 19.8 10*3/uL (4.8-10.8)
[2020-03-08 22:45] LABS: ALBUMIN 3.8 gm/dl (3.1-4.5); ALKALINE PHOSPHATASE 80 U/L (45-117); BUN 19 mg/dl (7-24); CHLORIDE 104 mmol/L (98-107); CREATININE 1.04 mg/dL (0.70-1.30); POTASSIUM 3.8 mmol/L (3.5-5.1); SGOT/AST 19 IU/L (3-35); SGPT/ALT 27 U/L (12-78); SODIUM 137 mmol/L (136-145); TOTAL PROTEIN 7.5 gm/dL (6.4-8.2)
[2020-03-09 01:59] LABS: URINE AMPHETAMINES < 1000 (1000ng/ml); URINE BARBITURATES > 200 (200ng/ml); URINE BENZODIAZEPINES < 200 (200ng/ml); URINE CANNABINOIDS (THC) < 50 (50ng/ml); URINE COCAINE < 300 (300ng/ml); URINE METHADONE < 300 (300ng/ml); URINE OPIATES > 300 (300ng/ml); URINE PHENCYCLIDINE < 25 (25ng/ml)
== END 2020-03-09 03:35 | disposition home or self-care (01) ==
LOC: ED 21:32
PROVIDERS: Emergency Medicine
DX: T50.901A Poisoning by unspecified drugs, medicaments and biological substances, accidental (unintentional), initial encounter (principal); Y92.89 Other specified places as the place of occurrence of the external cause